=== PATIENT | female | born 1955 | race Caucasian/White ===

== ENCOUNTER 2018-03-21 15:08 | Emergency (ER) | payer BC ==
[~2018-03-21] VITALS: Ht 167.6 cm; Wt 87.7 kg
[2018-03-21 18:04] VITALS: BP 169/90
== END 2018-03-21 18:05 | disposition home or self-care (01) ==
LOC: EME 15:08
DX: F33.2 Major depressive disorder, recurrent severe without psychotic features (principal); Z04.6 Encounter for general psychiatric examination, requested by authority; E78.5 Hyperlipidemia, unspecified; E03.9 Hypothyroidism, unspecified; I10 Essential (primary) hypertension; F17.200 Nicotine dependence, unspecified, uncomplicated
CPT/HCPCS: 90837; 99281; 99285